=== PATIENT | male | born 1970 | race Two or more races ===

== ENCOUNTER 2023-03-30 21:01 | Emergency (ER) | payer OTHER ==
[2023-03-30 21:16] VITALS: BMI 30.1
[2023-03-30 21:55] LABS: HEMATOCRIT 45.8 % (35.4-49); HEMOGLOBIN 15.4 G/dL (11.7-16.9); MCH 30.6 pg (25.7-33.7); MCHC 33.6 g/dl (32.0-35.9); MEAN CELL VOLUME 91.1 fl (80-96); MEAN PLT VOLUME 7.8 fl (7.5-11.1); PLATELET COUNT 188.3 10^3/uL (134-434); RBC 5.03 10^6/uL (4.00-5.60); RDW 13.8 % (11.9-15.9); WHITE BLOOD COUNT 8.1 10^3/uL (4.0-10.8)
[2023-03-30 21:57] LABS: PLATELET ESTIMATE ADEQUATE
[2023-03-30 22:19] LABS: ALBUMIN 4.2 g/dl (3.4-5.0); BLOOD UREA NITROGEN 21.6 mg/dl (7-18); CALCIUM 9.6 mg/dl (8.5-10.1); CREATININE 0.9 mg/dl (0.6-1.3); SGPT/ALT 29.8 U/L (7-52); TOT PROT 6.9 g/dl (6.4-8.2)
[2023-03-31 00:23] LABS: BILIRUBIN,TOTAL 0.2 mg/dL (0.2-1)
[2023-03-31 08:17] VITALS: BP 149/90; PULSE 51; RESP 18; TEMP 98.7
== END 2023-03-31 09:05 | disposition short-term general hospital (02) ==
LOC: FER 21:01
DX: M54.2 Cervicalgia (principal); R07.2 Precordial pain; I20.8 Other forms of angina pectoris
CPT/HCPCS: 36415; 71045-TC-FY; 80053; 84484; 85027; 93005; 99285-25

== ENCOUNTER 2023-07-17 22:05 | Emergency (ER) | payer OTHER ==
[2023-07-17 22:23] VITALS: BP 125/81; PULSE 81; RESP 18; TEMP 98.5; BMI 28.8
[2023-07-17] MEDS ORDERED: DIPHTH,PERTUSS(ACELL),TET 0.5 ML DISP.SYRIN IM ONE ×2 (22:23→22:27)
[2023-07-17] MEDS ORDERED: CEPHALEXIN MONOHYDRATE 500 MG CAPSULE (UD) PO ONE (23:46)
[2023-07-17] MEDS ORDERED: CEPHALEXIN MONOHYDRATE 500 MG CAPSULE (UD) ONE (23:55)
== END 2023-07-18 00:28 | disposition home or self-care (01) ==
LOC: FER 22:05
PROC: 3E0234Z Introduction of Serum, Toxoid and Vaccine into Muscle, Percutaneous Approach (ICD-10-PCS; principal; 2023-07-17)
DX: R51.9 Headache, unspecified (principal); R07.9 Chest pain, unspecified; M25.551 Pain in right hip; S22.31XA Fracture of one rib, right side, initial encounter for closed fracture
CPT/HCPCS: 70450-TC; 71250-TC; 73502-TC-RT-FY; 90471; 90715; 99284-25